=== PATIENT | female | born 1950 | race Caucasian/White ===

== ENCOUNTER 2018-02-13 06:37 | Inpatient (IN) | payer OTHER ==
[2018-02-06 09:59] VITALS: BMI 34.0
--- NOTE | 2018-02-06 11:38 | DIAGNOSTIC IMAGING REPORT ---
CHEST 2 VIEWS ROUTINE CLINICAL HISTORY: PAT preoperative evaluation COMPARISON STUDY: No previous studies for comparison. FINDINGS: The bones soft tissues and hemidiaphragms are normal. The cardiomediastinal silhouette is normal. The lungs are clear. The pulmonary vasculature is normal. IMPRESSION: Negative chest. The above report was generated using voice recognition software. It may contain grammatical, syntax or spelling errors. Electronically signed by: Reilly Briceño M.D. 02/06/2018 11:37 AM Dictated Date/Time: 02/06/2018 11:36 AM
[2018-02-06 11:39] LABS: BASO % 1.1 %; BASO ABS # 0.06 K/uL (0-0.2); EOS % 5.5 %; EOS ABS # 0.29 K/uL (0-0.5); HEMATOCRIT 39.3 % (37-47); HEMOGLOBIN 13.1 g/dL (12.0-16.0); IG# 0.01 K/uL (0.00-0.02); LYMPH % 35.7 %; LYMPH ABS # 1.88 K/uL (1.2-3.4); MEAN CELL VOLUME 88.9 fL (80-100); MEAN CORPUSCULAR HEMOGLOBIN 29.6 pg (25-34); MEAN CORPUSCULAR HGB CONC 33.3 g/dl (32-36); MEAN PLATELET VOLUME 10.4 fL (7.4-10.4); MONO % 6.5 %; MONO ABS # 0.34 K/uL (0.11-0.59); NEUT ABS # 2.68 K/uL (1.4-6.5); PLATELET COUNT 250 K/uL (130-400); RED CELL DISTRIBUTION WIDTH CV 12.7 % (11.5-14.5); RED CELL DISTRIBUTION WIDTH SD 41.2 fL (36.4-46.3); WHITE BLOOD COUNT 5.26 K/uL (4.8-10.8)
[2018-02-06 11:45] LABS: CALCIUM 9.6 mg/dl (8.5-10.1); CREATININE 1.62 mg/dl (0.60-1.20); POTASSIUM 4.1 mmol/L (3.5-5.1)
[2018-02-06 11:49] LABS: PTT PATIENT 25.1 SECONDS (21.0-31.0)
--- NOTE | 2018-02-10 10:09 | HISTORY & PHYSICAL EXAMINATION ---
DATE OF ADMISSION: 02/13/2018 CHIEF COMPLAINT: Bilateral knee pain and discomfort, left side greater than right. HISTORY OF PRESENT ILLNESS: A 67-year-old female who presents for surgical treatment of her left knee. She has a long history of bilateral knee pain and discomfort, left side greater than right, which gradually has just gotten worse over time. We have been treating conservatively with injections which have become less successful over time. We were doing this for the past 8 years or so. Pain is mostly medial. She has had some underlying kidney disease and cannot take NSAIDs. Pain is somewhat disabling and she would like to have her left knee fixed. PAST MEDICAL HISTORY: 1. Hypertension. 2. Elevated cholesterol. 3. Asthma. 4. Bipolar disorder. 5. Hypothyroidism. 6. Chronic kidney disease. 7. Gastroesophageal reflux disease. 8. Mild obesity, BMI 35. PAST SURGICAL HISTORY: Foot surgery. ALLERGIES: LOMOTIL. CURRENT MEDICINES: 1. Include Levoxyl 137 mcg a day. 2. Hydrocodone for chronic pain. 3. Fluticasone nasal spray. 4. Afrin nasal spray. 5. Lamictal 100 mg for bipolar disorder. 6. Ventolin inhaler. 7. Atarax. 8. Prilosec 40 mg. 9. Primidone. 10. Lorazepam. 11. Neurontin. 12. Prozac. 13. Vitamin D3. SOCIAL HISTORY: A 67-year-old female. She is but lives with her family. No alcohol intake. Does not smoke. FAMILY HISTORY: Significant for basal cell skin cancer. REVIEW OF SYSTEMS: Negative for diabetes, neurologic problems, vascular problems, bleeding disorders. She does have chronic kidney disease with a creatinine of 1.62. No chest pain or shortness of breath. No bleeding problems. She does have this underlying bipolar disorder. PHYSICAL EXAMINATION: GENERAL: Reveals a pleasant middle-aged female, looks to be in pretty good health. HEENT: Benign. NECK: Supple. No lymphadenopathy. LUNGS: Clear to auscultation. HEART: Regular rate and rhythm. ABDOMEN: Soft, nontender, nondistended. EXTREMITIES: Grossly neurovascularly intact except as follows: Examination of left knee reveals patient walks independently. She has a slight varus alignment to her knee. Skin is intact. Range of motion is full extension to 125 degrees of flexion. No instability. No pain with hip motion. X-RAYS: X-ray of left knee reviewed. Shows advanced medial compartment arthritis. She has complete loss of her medial joint space. She has subchondral sclerosis and osteophytes of the medial femoral condyle and medial tibial plateau. ASSESSMENT: A 67-year-old white female with advanced bilateral knee degenerative joint disease, left side greater than right. She has failed conservative treatment and would like to have her left knee replaced. PLAN: We will take her to the operating room and do a left total knee replacement. The risks and benefits of this procedure explained to the patient including but not limited to DVT, PE, , infection, neurological injury, neurovascular injury, bleeding problem, pain, limited range of motion, stiffness, failure to relieve her symptoms, persistent pain etc. The patient understands and desires to proceed. Informed consent was obtained. Patient does have an underlying kidney disease, we will have to be careful with NSAID use postoperatively. We will plan using aspirin twice a day and probably hold any Toradol. As far as discharge plans, she is going to be discharged to home using [facility] home health program. Her family will assist in her care along with her sister.
[~2018-02-13] VITALS: Ht 167.6 cm; Wt 95.8 kg
[2018-02-13] VITALS (9 sets, daily range): BP systolic 127–176; BP diastolic 79–108; PULSE 53–69; TEMP 36.4–37.1; O2SAT 94–99; Ht 167.6 cm; Wt 95.8 kg
[~2018-02-13 06:37] MED LIST: ACETAMINOPHEN 500 MG TAB PO SCH; BUPIVACAINE LIPOSOME 266 MG, BUPIVACAINE/EPINEPHRINE INJ 50 ML, SODIUM CHLORIDE 0.9% PF... INFIL SCH; CEFAZOLIN 2000MG IV PUSH 15 ML IV SCH; CHOL2000 PO; CLR10 PO; DIPH25CA65 PO; FAMOTIDINE 20 MG TAB PO SCH; FENTANYL CITRATE INJ 50 MCG/1 ML 2 ML VIAL ONE; FLUO40CA8 PO; FLUT0.15 INTNAS; GABAPENTIN 300 MG CAP PO SCH; HYDR-3126 PO; LACTATED RINGER'S 1000ML 1,000 ML IV SCH; LACTATED RINGER'S 1000ML 500 ML IV SCH; LACTATED RINGER'S 1000ML IV SCH; LAMO100T16 PO; LEVO137T3 PO; LORA-741 PO; METOCLOPRAMIDE HCL 10 MG TAB PO SCH; MIDAZOLAM HCL 1 MG/ML 2ML VIAL ONE; MYS50 PO; OXYM0.056 INTNAS; PRLSR20 PO; TRANEXAMIC ACID INJ 1,000 MG x 1 Bag Preop IV SCH; VNTHFA/IN INH
[2018-02-13] MEDS ORDERED: ROPIVACAINE 0.5% 5 MG/ML 30 ML VIAL ONE (07:32)
[2018-02-13] MEDS ORDERED: BUPIVACAINE 0.5 % 5 MG/1 ML PF 10ML VIAL ONE (07:33)
--- NOTE | 2018-02-13 08:51 | History & Physical Bridge Note ---
H&P Re-Evaluation Bridge Note: I have examined the patient, reviewed the History & Physical and in the interval since the performance of the History & Physical I have noted the following changes of clinical significance: No changes noted
[2018-02-13] MEDS ORDERED: BACITRACIN 50000 UNIT VIAL ONE (09:57)
[2018-02-13] MEDS ORDERED: EpINEphrine INJ 1MG/ML AMP 1 MG/ML AMP ONE (09:57)
[2018-02-13] MEDS ORDERED: SODIUM CHLORIDE 0.9% PF 50 ML VIAL ONE (09:57)
[2018-02-13] MEDS ORDERED: BUPIVACAINE LIPOSOME 1/3% 266 MG/20 ML VIAL ONE (09:57)
[2018-02-13] MEDS ORDERED: BUPIVACAINE 0.25% 30 ML VIAL ONE (09:57)
[2018-02-13] MEDS ORDERED: EpHEDrine SULFATE INJ 50 MG/ML AMP IV PRN (11:30)
[2018-02-13] MEDS ORDERED: ATROPINE SULFATE 0.1 MG/ML 5ML SYR IV PRN (11:30)
[2018-02-13] MEDS ORDERED: PROPOFOL IV EMULSION 10 MG/ML 20 ML VIAL ONE (11:36)
[2018-02-13] MEDS ORDERED: ONDANSETRON INJ 2 MG/ML 2 ML VIAL ONE (11:36)
[2018-02-13] MEDS ORDERED: LIDOCAINE HCL 2% 2 ML VIAL (20MG/ML) ONE (11:36)
--- NOTE | 2018-02-13 11:47 | [facility] Post Operative Brief Note ---
Immediate Operative Summary Operative Date February 13, 2018. Pre-Operative Diagnosis Left Knee Advanced Degenerative Joint Disease Post-Operative Diagnosis Left Knee Advanced Degenerative Joint Disease Procedure(s) Performed Left Total Knee Arthroplasty Surgeon Dr. Swanson Burr Grinder Surgeon(s) ANUSHA Sorto Estimated Blood Loss 50 ml Findings Consistent with Post-Op Diagnosis Fluids (cc crystalloids) 1200 cc Specimens A. Left Knee Bone and Tissue Drains None Anesthesia Type MAC Spinal Regional Complication(s) none Disposition Accompanied Pt To Recover: no Disposition: Recovery Room / PACU
[2018-02-13] MEDS ORDERED: FLUTICASONE PROPIONATE NA SPR 16 GM BTL PRN (12:00)
[2018-02-13] MEDS ORDERED: hydrOXYzine HCL 10 MG TAB PO PRN (12:00)
[2018-02-13] MEDS ORDERED: METOCLOPRAMIDE HCL INJ 5 MG/ML 2 ML VIAL IV PRN (12:00)
[2018-02-13] MEDS ORDERED: MAGNESIUM HYDROXIDE SUSP 30 ML UDC PO PRN (12:00)
[2018-02-13] MEDS ORDERED: ALBUTEROL HFA 8 GM INHALER INH PRN (12:00)
[2018-02-13] MEDS ORDERED: ALUMINUM/MAGNESIUM/SIMETH (MAALOX MAX) 30 ML UDC PO PRN (12:00)
[2018-02-13] MEDS ORDERED: NO NSAIDS SCH (12:00)
[2018-02-13] MEDS ORDERED: SILVER SULFADIAZINE 1% CR 50 GM JAR EXT PRN (12:00)
[2018-02-13] MEDS ORDERED: OXYMETAZOLINE HCL 0.05% NA SPR 15 ML BTL PRN (12:00)
[2018-02-13] MEDS ORDERED: LORATADINE 10 MG TAB PO PRN (12:00)
[2018-02-13] MEDS ORDERED: BISACODYL 10 MG SUPP PR PRN (12:00)
[2018-02-13] MEDS ORDERED: ZOLPIDEM TARTRATE 5 MG TAB PO PRN (12:00)
[2018-02-13] MEDS ORDERED: LORAZEPAM 0.5 MG TAB PO PRN (12:00)
[2018-02-13] MEDS ORDERED: CEFAZOLIN IV 2,000 MG in DEXTROSE 5% 50ML 50 ML IV SCH (12:00)
[2018-02-13] MEDS ORDERED: DiphenhydrAMINE HCL 50 MG/ML VIAL IV PRN (12:00)
--- NOTE | 2018-02-13 12:29 | DIAGNOSTIC IMAGING REPORT ---
L KNEE 1 OR 2 VIEWS ROUTINE CLINICAL HISTORY: 67 years-old Female presenting with AP/LATERAL IN PACU LEFT KNEE. TECHNIQUE: Frontal and crosstable lateral views of the left knee were obtained. COMPARISON: 01/26/2018. FINDINGS: There has been interval total left knee arthroplasty with patellar resurfacing. Expected intra-articular and soft tissue emphysema. Overlying skin lexii noted. No acute fracture or malalignment. No hardware convocation. IMPRESSION: Expected postsurgical appearance status post total left knee arthroplasty with patellar resurfacing. Electronically signed by: Jakub Molina M.D. 02/13/2018 12:28 PM Dictated Date/Time: 02/13/2018 12:26 PM
--- NOTE | 2018-02-13 12:31 | Anesthesiology Progress Note ---
Anesthesia Post Op Note Date & Time February 13, 2018 at 12:30 Vital Signs Pain Intensity: 0 Vital Signs Past 12 Hours Date Time Temp Pulse Resp B/P (MAP) Pulse Ox O2 Delivery O2 Flow Rate FiO2 02/13/18 12:23 36.6 94 Nasal Cannula 2 02/13/18 12:21 108/66 02/13/18 12:19 58 15 99 02/13/18 12:19 58 15 02/13/18 12:16 121/65 02/13/18 12:14 59 17 02/13/18 12:14 59 17 98 02/13/18 12:11 121/70 02/13/18 12:09 59 20 02/13/18 12:09 60 20 98 02/13/18 12:08 60 19 02/13/18 12:08 59 19 98 02/13/18 12:06 115/65 02/13/18 12:03 63 21 100 02/13/18 12:03 62 21 02/13/18 12:01 113/60 02/13/18 11:58 59 15 98 02/13/18 11:58 59 15 02/13/18 11:56 101/58 02/13/18 11:53 68 120/65 95 02/13/18 11:53 36.6 66 16 120/65 98 Oxymask 10 02/13/18 11:53 69 02/13/18 07:14 36.9 64 20 160/86 95 Room Air Notes Mental Status: alert / awake / arousable, participated in evaluation Pt Amnestic to Procedure: Yes Nausea / Vomiting: adequately controlled Pain: adequately controlled Airway Patency, RR, SpO2: stable & adequate BP & HR: stable & adequate Hydration State: stable & adequate Neuraxial Anesthesia: was administered, sensory block is resolving Anesthetic Complications: no major complications apparent
[2018-02-13] MEDS: D5W AND 1/2NSS + 20MEQ KCL 1,000 ML IV SCH ×2 (14:39→23:37)
[2018-02-13] MEDS: OXYCODONE HCL IR 5 MG TAB (IMMEDIATE RELEASE) PO PRN ×3 (15:16→19:59)
--- NOTE | 2018-02-13 16:05 | OPERATIVE REPORT ---
DATE OF OPERATION: 02/13/2018 SURGEON: Dima Swanson MD INSPECTOR PROCESS: Rj TAVARES PREOPERATIVE DIAGNOSIS: Left knee degenerative joint disease. POSTOPERATIVE DIAGNOSIS: Same. PROCEDURE PERFORMED: Left cemented posterior stabilized total knee arthroplasty. COMPLICATIONS: None. ESTIMATED BLOOD LOSS: 50 mL. FLUID REPLACEMENT: 1200 mL crystalloid fluid replacement. TOURNIQUET TIME: 54 minutes at 300 mmHg. ANESTHESIA: Spinal with adductor canal block. DRAINS: None. SPECIMENS: Left knee sent for pathology. OPERATIVE INDICATIONS: The patient is a 67-year-old female have been following for the past 8 years for bilateral knee pain and degenerative joint disease. She has been through extensive conservative treatment over the years, which became less successful over time. X-rays show advanced knee arthritis. The left knee is bothered more than the right. She elects to proceed with left total knee arthroplasty. OPERATIVE FINDINGS: Operative findings revealed advanced left knee DJD. She has extensive grade 4 changes medial femoral condyle and medial tibial plateau. She had a moderate sized joint effusion. The rest of the joint was fairly well preserved. She did have osteophytes in the medial femoral condyle and medial tibial plateau. OPERATIVE IMPLANTS: Operative implants consisted of: 1. Biomet Vanguard size 67.5 left posterior stabilized femoral component. 2. Biomet size 71 tibial tray. 3. A 10 mm posterior stabilized polyethylene insert. 4. A 31 x 8 all poly patella. OPERATIVE PROCEDURE: The patient taken to the operating room, identified and placed on the operating table in supine position. All contact areas were appropriately padded. IV antibiotics were provided by anesthesia team. A spinal anesthetic and adductor canal block had been provided in the holding area. Arevalo catheter was placed in sterile fashion. A left thigh tourniquet was then placed and left lower extremity was then prepped and draped in usual sterile fashion. The left leg was elevated and exsanguinated with Esmarch and tourniquet was placed at 300 mmHg. An anterior approach of the left knee was then performed through a longitudinal incision centered over the patella. Sharp dissection was carried through subcutaneous tissue down to the level of the extensor mechanism. Medial parapatellar arthrotomy incision was made. Some subperiosteal dissection was carried out medially. The fat pad resecting from beneath the patellar tendon. Lateral patellofemoral ligament was released. Patella was everted and knee was flexed. The osteophytes were taken off the distal femur. The ACL and PCL were then released from the distal femur and the tibia subluxated anteriorly. External tibial alignment jig was then placed in the anterior face of the tibia and adjusted 16 mm medially. Proximal tibial cut was made to remove about a millimeter of bone from the most deficient aspect of the medial tibial plateau. Some osteophytes were taken off posteriorly. The tibia was then sized to a size 71. Attention was then drawn to the femur. The distal femur was entered with a sharp drill bit. Intramedullary canal was suctioned. A left 5 degree valgus cutting guide was placed and distal femoral cutting block was pinned in place. Distal femoral cut was made to take an additional 3 mm of bone off the distal femur. Femur was then sized to a size 67.5. The AP cutting block was pinned parallel to the epicondylar axis, which was 5 degrees of external rotation. The anterior cut, anterior chamfer, posterior cut, posterior chamfer cuts were made. Box cutting guide was placed and adjusted slight lateral and box cut was made. The knee was flexed. The remnants of the medial and lateral menisci were excised. The osteophytes were taken off the posterior aspect of the femur. Trial femoral component was placed. Tibial tray was pinned in maximum external rotation and drill and stem punch were used to create defect in proximal tibia for the tibial tray. The knee was then trialed and the 10 mm insert fit most appropriately. Attention was then drawn to the patella. The patella was cleaned of all soft tissues. Patellar thickness measured 23 mm in thickness was cut down to 14. It was sized to a size 31 patella. Lug holes were drilled for 31 patella. Lateral osteophyte was removed. Patella button was placed. Knee was taken through range of motion and the patella tracked nicely with no thumbs test. Attention was then drawn toward placement of permanent components. All trial components removed. Bone plug was placed into the distal femur to limit blood loss. A double batch of Palacos G cement was mixed. A left size 67.5 posterior stabilized femoral component, size 71 tibial tray, a 10 mm posterior stabilized polyethylene insert, and a 31 x 8 all poly patella then cemented in place. Knee was brought in full extension until the cement had hardened. Final cement check was then performed. Pericapsular tissues were injected with a total of 100 mL of a combination of 20 mL of Exparel, 30 mL of normal saline, 50 mL of 0.25% Marcaine with epinephrine. The patient did receive 1 gram of tranexamic acid. The tourniquet was then let down for final tourniquet time of 54 minutes. Hemostasis was assured with use of electrocautery. The wound was once again irrigated. The extensor mechanism was then closed with a combination of #1 PDS suture and #1 Vicryl suture in a [id number] fashion. Extensor mechanism was checked and found to be intact. The subcutaneous tissue then closed with #2 Dexon suture in a buried interrupted fashion. Skin was closed skin lexii. Leg was then cleaned and dried and a sterile dressing of Xeroform, 4 x 4, sterile cast padding and Mateus bandage were applied. The patient then transferred to the recovery room in stable condition. The patient tolerated the procedure well with no complications. All needle and sponge counts were correct and the operation. I attest to the content of the Intraoperative Record and any orders documented therein. Any exceptions are noted below. MAX
[2018-02-13] MEDS: FERROUS GLUCONATE 324 MG TAB PO SCH (17:06)
[2018-02-13] MEDS ORDERED: TRANEXAMIC ACID INJ 1,000 MG in SODIUM CHLORIDE 0.9% 100ML 100 ML IV SCH (18:00)
[2018-02-13] MEDS: CEFAZOLIN IV 2,000 MG in SYRINGE 0 ML IV SCH (18:46)
--- NOTE | 2018-02-13 19:13 | PROGRESS NOTE ---
DATE: 02/13/2018 SUBJECTIVE: A 67-year-old while female postop from a left knee replacement. She is doing well. Just starting to get some pain. No chest pain or shortness of breath. Not feeling dizzy or lightheaded. OBJECTIVE: VITAL SIGNS: Temperature 36.4. Stable. GENERAL: Exam reveals a pleasant middle-aged female. She is sitting up in bed, looks comfortable. EXTREMITIES: Examination of the left leg reveals the dressing to be clean, dry, and intact. She can dorsiflex and plantarflex her foot appropriately. She has brisk refill. Good distal pulse. IMAGING: X-rays of left knee from recovery room reviewed. It shows a left cemented posterior stabilized total knee arthroplasty. Components looked to be in good position. No signs of problems. ASSESSMENT: A 67-year-old white female postop from a left knee replacement, doing well. The pain is controlled. She is neurologically intact. PLAN: 1. DVT prophylaxis including thigh-high TEDs, SCDs, and aspirin twice a day. 2. PT/OT. Weightbear as tolerated. Left total knee protocol. 3. Pain control and doing pretty well with current pain regimen. 4. Disposition: She is hoping to be discharged to home with home health and her family's assistance once medically stable.
[2018-02-13] MEDS: HYDROmorphone INJ 0.5 MG/0.5 ML SYR IV PRN (19:16)
[2018-02-13] MEDS: SENNA 8.6 MG TAB PO SCH (21:12)
[2018-02-13] MEDS: ASPIRIN 81 MG ECTAB PO SCH (21:13)
[2018-02-13] MEDS: PRIMIDONE 50 MG TAB PO SCH (21:13)
[2018-02-13] MEDS: DOCUSATE SODIUM 100 MG CAP PO SCH (21:13)
[2018-02-13] MEDS: ACETAMINOPHEN 500 MG TAB PO SCH (21:14)
[2018-02-13] MEDS: TAPENTADOL ER 50 MG TABCR PO SCH (21:20)
[2018-02-14] VITALS (9 sets, daily range): BP systolic 135–195; BP diastolic 79–114; PULSE 73–105; TEMP 36.9–37.5; O2SAT 91–96
[2018-02-14] MEDS: OXYCODONE HCL IR 5 MG TAB (IMMEDIATE RELEASE) PO PRN ×5 (01:09→21:20)
[2018-02-14] MEDS: CEFAZOLIN IV 2,000 MG in SYRINGE 0 ML IV SCH (01:11)
[2018-02-14] MEDS: LEVOTHYROXINE 137 MCG TAB PO SCH (05:38)
[2018-02-14] MEDS: ACETAMINOPHEN 500 MG TAB PO SCH ×3 (05:38→22:18)
[2018-02-14 06:19] LABS: HEMATOCRIT 37.5 % (37-47); HEMOGLOBIN 12.4 g/dL (12.0-16.0); MEAN CELL VOLUME 90.4 fL (80-100); MEAN CORPUSCULAR HEMOGLOBIN 29.9 pg (25-34); MEAN CORPUSCULAR HGB CONC 33.1 g/dl (32-36); MEAN PLATELET VOLUME 10.5 fL (7.4-10.4); PLATELET COUNT 205 K/uL (130-400); RED CELL DISTRIBUTION WIDTH CV 12.6 % (11.5-14.5); RED CELL DISTRIBUTION WIDTH SD 41.6 fL (36.4-46.3); WHITE BLOOD COUNT 6.63 K/uL (4.8-10.8)
[2018-02-14 06:44] LABS: CALCIUM 8.7 mg/dl (8.5-10.1); CREATININE 1.76 mg/dl (0.60-1.20); POTASSIUM 4.2 mmol/L (3.5-5.1)
[2018-02-14] MEDS ORDERED: RXC5 PO (08:49)
[2018-02-14] MEDS ORDERED: ASPI-320 PO (08:49)
[2018-02-14] MEDS ORDERED: ACET-24 PO (08:49)
--- NOTE | 2018-02-14 08:51 | Discharge Instructions ---
Discharge Instructions Date of Service February 14, 2018. Admission Reason for Admission: Left Knee Degenerative Joint Disease Discharge Discharge Diagnosis / Problem: Left Knee Replacement Discharge Goals Goal(s): Decrease discomfort, Improve function, Increase independence, Improve disease control, Therapeutic intervention Activity Recommendations Activity Limitations: per Instructions/Follow-up section Weightbearing Status: Left weightbearing . Instructions / Follow-Up Instructions / Follow-Up ACTIVITY RECOMMENDATIONS: Physical Therapy: * You will go to physical therapy three times each week for four to six weeks after your surgery in order to regain your knee range of motion and to retrain your knee to work properly. * It is just as important to make sure you are getting your knee perfectly straight as it is to regain your knee bend. * Taking a pain pill an hour before therapy can help you have a more productive and comfortable therapy session. Home Exercise: * You were shown a series of exercises (heel props, heel slides, etc.) in the hospital. Do these exercises three to four times each day including the exercises you were shown in physical therapy. Walking: * Get up and walk several times each day. For the first four weeks, try not to stand or walk for more than one hour at a time. If you do stand or walk for more than one hour, you will not hurt anything, but your knee and leg will likely swell. * As you feel comfortable, you may change from the walker or crutches to a cane and then to independent walking. MEDICATIONS: New Medicine: * You will likely be taking one or more of these medications: 1. Oxycodone - A quick and shorter-acting pain medication. Take one to two tablets every four to six hours to lessen your pain. 2. Aspirin - Thins your blood to lessen the chance of forming a blood clot. * The most common side effects of pain medicine and iron are nausea and constipation. If nausea or constipation is too much of a problem or if you have any questions about your new medicines or doses, call [facility] at . We will try to help you manage these issues. VERY IMPORTANT TO READ AND REVIEW" Pain: * The immediate post-operative period after knee replacement surgery is often quite painful. * You are given a prescription for pain medicine. You should take it, as directed, when you need it, especially before physical therapy and before going to bed. Pain that interferes with sleep is very common and can last several months. * You will likely need pain medicine for the first four to six weeks. It will not stop all of the pain. The pain will lessen and as you feel better, you may change to milder pain medicine such as Tylenol. * The most common side effects of pain medicine are nausea and constipation, so don't take more than you need. SPECIAL CARE INSTRUCTIONS: TEDs/Elastic Stockings: * The white elastic stockings help limit swelling and prevent blood clots from forming in your legs. The more you wear them, the more they work. * Wear them for six weeks after knee replacement surgery and four weeks after partial knee replacement. Prevention of Infection: * Take antibiotics one hour before any dental cleaning, dental work, urological procedure, gastrointestinal procedure or any invasive surgery in order to prevent your new joint from getting infected. * You may get the antibiotics from the doctor performing the procedure or you may call our office at before and we will call in a prescription to the pharmacy of your choice. Things to Watch For: * Drainage from the incision site that occurs more than one week after your surgery. * Severely increased knee/leg pain or swelling. * Increased redness at the incision site. * Fever above 102 degrees Fahrenheit. * Unusual chest pain or shortness of breath. * Unusual pain or burning with urination. Call [facility] at with any of the above problems or if you have any questions about your medicines or recovery. FOLLOW UP VISIT: Make an appointment to see your doctor for approximately two weeks after surgery for a progress check and staple removal by calling the office at . Current Hospital Diet Patient's current hospital diet: Regular Diet Discharge Diet Recommended Diet: Regular Diet Procedures Procedures Performed: Left Total Knee Arthroplasty Pending Studies Studies pending at discharge: no Medical Emergencies . Who to Call and When: Medical Emergencies: If at any time you feel your situation is an emergency, please call [phone] immediately. . Non-Emergent Contact Non-Emergency issues call your: Surgeon . "Provider Documentation" section prepared by Dima Swanson. .
[2018-02-14] MEDS ORDERED: CHOLECALCIFEROL 1000 INTER.UNIT TAB PO SCH (09:00)
[2018-02-14] MEDS ORDERED: PANTOprazole SOD 40 MG TAB PO SCH (09:00)
[2018-02-14] MEDS: CHOLECALCIFEROL 1000 INTER.UNIT TAB PO SCH (09:00)
[2018-02-14] MEDS: MULTIVITAMIN TAB PO SCH (09:35)
[2018-02-14] MEDS: TAPENTADOL ER 50 MG TABCR PO SCH ×2 (09:35→22:18)
[2018-02-14] MEDS: FERROUS GLUCONATE 324 MG TAB PO SCH ×3 (09:36→17:11)
[2018-02-14] MEDS: ASPIRIN 81 MG ECTAB PO SCH ×2 (09:36→21:18)
[2018-02-14] MEDS: DOCUSATE SODIUM 100 MG CAP PO SCH ×2 (09:36→21:19)
[2018-02-14] MEDS: FLUOXETINE HCL 20 MG CAP PO SCH (09:36)
[2018-02-14] MEDS: PANTOprazole SOD 40 MG TAB PO SCH (09:36)
[2018-02-14] MEDS: D5W AND 1/2NSS + 20MEQ KCL 1,000 ML IV SCH (10:30)
--- NOTE | 2018-02-14 11:48 | PROGRESS NOTE ---
DATE: 02/14/2018 SUBJECTIVE: A 67-year-old white female, postop day 1 from a left knee replacement. She is doing reasonably well. A bit more pain today. No chest pain or shortness of breath. Not feeling dizzy or lightheaded. OBJECTIVE: VITAL SIGNS: Temperature 37.7. Vital signs stable. Intermittent hypertension, likely related to pain. GENERAL: Reveals a pleasant middle-aged female. She is lying in bed, looks reasonably comfortable currently. EXTREMITIES: Examination of left leg reveals the dressing to be clean, dry, and intact. She can dorsiflex and plantarflex her foot appropriately. She is neurologically intact. LABORATORY DATA: Hemoglobin is 12.4, hematocrit 37.5. Electrolytes are stable. Creatinine just slightly elevated at 1.76 compared to her baseline, which is 1.62. ASSESSMENT: A 67-year-old white female postop day 1 from a left knee replacement, doing reasonably well. A little bit of recent hypertension, but likely related to she just finished therapy. She does not have any symptoms. Her renal function is a bit deteriorated, likely just due to hydration issues. She has got chronic renal insufficiency. PLAN: 1. DVT prophylaxis including thigh high TEDs, SCDs, and a baby aspirin twice a day. I will continue to follow renal function. 2. PT/OT. Weight bear as tolerated. Left total knee protocol. 3. Pain control. Doing reasonably well with current pain regimen. 4. Hypertension. She has got a couple isolated elevated blood pressures. We will continue to follow this. I think most likely it is recently related to just finishing therapy. 5. Elevated creatinine. We will follow her creatinine. We will avoid any NSAIDs other than the baby aspirin. If creatinine continues to go up, we will likely have to stop her aspirin. 6. Disposition: She will be discharged to home with home health once medically stable.
[2018-02-14] MEDS ORDERED: HydrALAZINE HCL 20 MG/ML VIAL IV. STA (14:21)
--- NOTE | 2018-02-14 18:29 | Medical Consult ---
Consultation Date of Consultation: February 14, 2018. Attending Physician: Dima Swanson M.D. Reason for Consultation: post op medical mgmt History of Present Illness This is a 67yo F with a PMH of HTN, HLD, bipolar disorder, hypothyroidism, CKD III, OA and other medical problems listed below who is POD #1 s/p L TKA by Dr. Swanson. Patient is doing fairly well post-operatively. States that knee pain has been persistent but is only a 3/10. Medical consult was placed for management of hypertension, with highest reading of 195/114 post-operatively. Patient has previously been on lisinopril therapy at home but developed a cough and medication was discontinued by PCP. Has been undergoing monthly BP monitoring at the clinic and has not required any additional medications. Denies any fever, chills, lightheadedness, headache, visual changes, sore throat , CP, SOB, abdominal pain, nausea, vomiting, dysuria or LE swelling. PCP is Dr. De Anda with [facility]. Past Medical/Surgical History Medical Problems: (1) Asthma Status: Chronic (2) Bipolar disorder Status: Chronic (3) CKD (chronic kidney disease), stage III Status: Chronic (4) Diabetes insipidus Status: Chronic (5) GERD (gastroesophageal reflux disease) Status: Chronic (6) Hyperlipidemia Status: Chronic (7) Hypertension Status: Chronic (8) Hypothyroidism Status: Chronic (9) Left Knee DJD Status: Chronic (10) Vitamin D deficiency Status: Chronic Surgical Problems: (1) H/O hammer toe correction Status: Resolved (2) History of appendectomy Status: Resolved (3) Hx of tonsillectomy Status: Resolved Family History Diabetes mellitus Thromboembolic disease Social History Smoking Status: Never Smoker Alcohol Use: occasionally (1x/month) Marital Status: Housing Status: lives with family Allergies Coded Allergies: Lamotrigine (Verified Allergy, Unknown, SOB,CONFUSION,DISORIENTATION-FELT VERY DEPRESSED-WITH HIGHER, 02/13/18) OK TAKING TAKING LOWER DOSES CURRENTLY Lisinopril (Verified Allergy, Unknown, COUGH, 02/13/18) Home Medications Reported Home Medications Medications Dose Route/Sig Max Daily Dose Days Date Category Dose Instructions Oxycodone HCl 5 Mg Tab 5-10 Mg PO Q6H PRN 30 02/14/18 Rx Take as needed for Pain. Aspirin EC Low Dose (Aspirin) 81 Mg Ectab 81 Mg PO BID 45 02/14/18 Rx Take to prevent blood clots. Sb Non-Aspirin Extra Stre (Acetaminophen) 500 Mg Tab 1,000 Mg PO Q8H 30 02/14/18 Rx Take 3 times per day to lessen pain. Prozac (Fluoxetine HCl) 40 Mg Cap 40 Mg PO QAM 02/06/18 Reported Claritin (Loratadine) 10 Mg Tab 10 Mg PO PRN 02/06/18 Reported Benadryl Allergy (Diphenhydramine Hcl) 25 Mg Cap 1 Cap PO HS PRN 30 02/06/18 Reported Vitamin D3 (Cholecalciferol) 2,000 Unit Cap 1 Cap PO Q2D 90 02/06/18 Reported AM Ativan (Lorazepam) 0.5 Mg Tab 0.5 Mg PO BID PRN 02/06/18 Reported Prilosec (Omeprazole) 20 Mg Capcr 40 Mg PO QAM 02/06/18 Reported Ventolin Hfa (Albuterol) 200 Puffs/21454 Mcg Aers 2 Puffs INH Q6H PRN 02/06/18 Reported Atarax (Hydroxyzine Hcl) 50 Mg Tab 10 Mg PO PRN 02/06/18 Reported Afrin (Oxymetazoline Hcl) 0.05 % Spr 2 Sprays INTNAS PRN 02/06/18 Reported Flonase Allergy Relief (Fluticasone Propionate (Nasal)) 50 Mcg/Act Spr 2 Sprays INTNAS PRN 02/06/18 Reported Lamictal (Lamotrigine) 100 Mg Tab 100 Mg PO QAM 02/06/18 Reported Levothyroxine Sodium 137 Mcg Tab 1 Tab PO QAM 90 02/06/18 Reported Primidone 50 Mg Tab 50 Mg PO HS 02/06/18 Reported Current Inpatient Medications Current Inpatient Medications Medications (Trade) Dose Ordered Sig/Roberta Route Start Time Stop Time Status Last Admin Dose Admin Miscellaneous Medication (No Nsaids) 1 ea UD N/A 02/13/18 12:00 03/15/18 11:59 Oxycodone HCl (Roxicodone Immediate Rel Tab) 1 TABLET FOR PAIN RATING... Q4H PRN PO 02/13/18 12:00 02/27/18 11:59 02/14/18 16:34 10 MG Acetaminophen (Tylenol Tab) 1,000 mg Q8H PO 02/13/18 22:00 03/15/18 21:59 02/14/18 13:58 1,000 MG Magnesium Hydroxide (Milk Of Magnesia Susp) 30 ml Q6H PRN PO 02/13/18 12:00 03/15/18 11:59 02/14/18 16:24 30 ML Bisacodyl (Dulcolax Supp) 10 mg DAILY PRN SD 02/13/18 12:00 03/15/18 11:59 Senna (Senokot Tab) 17.2 mg HS PO 02/13/18 21:00 03/15/18 20:59 02/13/18 21:12 17.2 MG Docusate Sodium (coLACE CAP) 100 mg BID PO 02/13/18 21:00 03/15/18 20:59 02/14/18 09:36 100 MG Diphenhydramine HCl (Benadryl Cap) 25 mg Q8H PRN PO 02/13/18 12:00 03/15/18 11:59 Diphenhydramine HCl (Benadryl Inj) 25 mg Q8H PRN IV 02/13/18 12:00 03/15/18 11:59 Al Hydrox/Mg Hydrox/Simethicone (Maalox Max Susp) 15 ml Q4H PRN PO 02/13/18 12:00 03/15/18 11:59 Zolpidem Tartrate (Ambien Tab) 5 mg HSZ PRN PO 02/13/18 12:00 03/15/18 11:59 Multivitamins (Multivitamin Tab) 1 tab QAM PO 02/14/18 09:00 03/16/18 08:59 02/14/18 09:35 1 TAB Ondansetron HCl (Zofran Inj) 4 mg Q6H PRN IV 02/13/18 12:00 03/15/18 11:59 Metoclopramide HCl (Reglan Inj) 10 mg Q6H PRN IV 02/13/18 12:00 03/15/18 11:59 Ferrous Gluconate (Ferrous Gluconate Tab) 324 mg TIDM PO 02/13/18 17:45 03/15/18 17:44 02/14/18 12:58 324 MG Silver Sulfadiazine (Silvadene 1% Crm 50GM Jar) 1 appln BID PRN EXT 02/13/18 12:00 03/15/18 11:59 Tapentadol (Nucynta Er Tab) 50 mg Q12 PO 02/13/18 21:00 03/15/18 20:59 02/14/18 09:35 50 MG Aspirin (Ecotrin Tab) 81 mg BID PO 02/13/18 21:00 03/15/18 20:59 02/14/18 09:36 81 MG Hydromorphone HCl (Dilaudid Inj) 0.5 mg Q1H PRN IV 02/13/18 12:00 02/27/18 11:59 02/13/18 19:16 0.5 MG Albuterol (Ventolin Hfa Inhaler) 2 puffs Q6H PRN INH 02/13/18 12:00 03/15/18 11:59 Diphenhydramine HCl (Benadryl Cap) 25 mg HS PRN PO 02/13/18 12:00 03/15/18 11:59 Fluoxetine HCl (Prozac Cap) 40 mg QAM PO 02/14/18 09:00 03/16/18 08:59 02/14/18 09:36 40 MG Fluticasone Propionate (Flonase Nasal [place]) 2 sprays UD PRN NA 02/13/18 12:00 03/15/18 11:59 Hydroxyzine HCl (Vistaril Tab) 10 mg DAILY PRN PO 02/13/18 12:00 03/15/18 11:59 Lamotrigine (Lamictal Tab) 100 mg QAM PO 02/14/18 09:00 03/16/18 08:59 02/14/18 09:35 100 MG Levothyroxine Sodium (Synthroid Tab) 137 mcg DAILYBB PO 02/14/18 06:00 03/16/18 05:59 02/14/18 05:38 137 MCG Loratadine (Claritin Tab) 10 mg DAILY PRN PO 02/13/18 12:00 03/15/18 11:59 Lorazepam (Ativan Tab) 0.5 mg BID PRN PO 02/13/18 12:00 03/15/18 11:59 Oxymetazoline HCl (Afrin 0.05% Nasal [place]) 2 sprays PRN PRN NA 02/13/18 12:00 03/15/18 11:59 Primidone (Mysoline Tab) 50 mg HS PO 02/13/18 21:00 03/15/18 20:59 02/13/18 21:13 50 MG Pantoprazole Sodium (Protonix Tab) 40 mg QAM PO 02/14/18 09:00 03/16/18 08:59 02/14/18 09:36 40 MG Cholecalciferol (Vitamin D Tab) 2,000 inter.unit Q2D@0900 PO 02/14/18 09:00 03/16/18 08:59 Hydralazine HCl (HydrALAZINE INJ) 10 mg Q8 PRN IV. 02/14/18 14:30 03/16/18 14:29 Review of Systems Ten systems reviewed and negative except as noted in the HPI. Physical Exam Date Time Temp Pulse Resp B/P (MAP) Pulse Ox O2 Delivery O2 Flow Rate FiO2 02/14/18 15:44 37.4 105 17 160/96 (117) 92 Room Air 02/14/18 13:00 96 179/111 (133) 02/14/18 11:40 36.9 85 16 195/114 (141) 96 Room Air 02/14/18 11:00 77 195/114 (141) 02/14/18 08:00 Room Air 02/14/18 07:21 37.3 76 16 162/92 (115) 91 Room Air 02/14/18 04:01 37.3 73 16 135/79 (97) 94 Room Air 02/13/18 23:15 Room Air 02/13/18 23:11 37.1 69 16 149/90 (109) 94 Room Air 02/13/18 21:24 162/91 (114) 02/13/18 19:43 36.6 63 16 176/108 (130) 98 Room Air 164/95 (118) General Appearance: WD/WN, no apparent distress Head: normocephalic, atraumatic Eyes: normal inspection, PERRL, sclerae normal ENT: normal ENT inspection, hearing grossly normal, pharynx normal (Moist mucous membranes) Neck: supple, thyroid normal, trachea midline Respiratory/Chest: chest non-tender, lungs clear, normal breath sounds, no respiratory distress, no accessory muscle use Cardiovascular: regular rate, rhythm, no edema, normal peripheral pulses Abdomen/GI: non tender, soft, no organomegaly Back: normal inspection Extremities/Musculoskelatal: normal inspection, normal capillary refill, no pedal edema, + pertinent finding (Surgical dressing on left knee--clean, dry, intact.) Neurologic/Psych: no motor/sensory deficits, alert, normal mood/affect, oriented x 3 Skin: normal color, warm/dry Laboratory Results Last 24 Hours Test 02/14/18 05:47 White Blood Count 6.63 K/uL Red Blood Count 4.15 M/uL Hemoglobin 12.4 g/dL Hematocrit 37.5 % Mean Corpuscular Volume 90.4 fL Mean Corpuscular Hemoglobin 29.9 pg Mean Corpuscular Hemoglobin Concent 33.1 g/dl RDW Standard Deviation 41.6 fL RDW Coefficient of Variation 12.6 % Platelet Count 205 K/uL Mean Platelet Volume 10.5 fL Sodium Level 136 mmol/L Potassium Level 4.2 mmol/L Chloride Level 107 mmol/L Carbon Dioxide Level 24 mmol/L Anion Gap 5.0 mmol/L Blood Urea Nitrogen 19 mg/dl Creatinine 1.76 mg/dl Est Creatinine Clear Calc Drug Dose 36.2 ml/min Estimated GFR () 34.1 Estimated GFR (Non- 29.4 BUN/Creatinine Ratio 10.5 Random Glucose 124 mg/dl Calcium Level 8.7 mg/dl Hepatitis C Antibody Screen NEG Assessment & Plan This is a 67yo F with a PMH of HTN, bipolar disorder, hypothyroidism, CKD III, OA and other medical problems listed below who is POD #1 s/p L TKA by Dr. Swanson. Left knee OA s/p L knee TKA: -Surgery by Dr. Swanson -Doing well post-operatively -Per ortho for pain control, wound care, anticoagulation and activities -Monitor H&H, continue incentive spirometry, PT/OT when appropriate HTN: -Was previously on lisinopril but it was discontinued 2/2 cough -BP monitoring in clinic but no additional medications have been indicated -Optimize pain control. Encouraged to ask for PRN medication as needed -Good response to IV hydralazine. Current reading 160/96 -Continue with PRN hydralazine -Monitor and add additional agents if needed -Close follow up in clinic for oral agents Bipolar disorder: -Cont Lamictal Anxiety: -Cont Atarax, Ativan PRN Hypothyroidism: -Cont levothyroxine CKD III: -Baseline Cr of 1.6, GFR of 33 -Currently slightly elevated at 1.76, 29 -Monitor closely, encouraged fluid intake -BMP in AM GERD: -Cont PPI Essential tremor: -Cont Primidone PCP: Ne[facility] Dispo: Farooq oshea Patient seen in collaboration with Dr. Luo. Please see addendum. Thank you for this consultation. We will follow the patient with you during their hospital stay. You can reach a member of the [facility] Hospitalist Team 08/05 via pager @ . ATTENDING ADDENDUM: Patient seen and examined care coordinated with Ellyn Swanson PA-C 67-year-old female underwent knee replacement surgery on left side Found to be hypertensive Patient is not on any antihypertensive drugs Used to take lisinopril was discontinued secondary to chronic dry cough Patient denies of any complaint of chest heaviness, no dizzy spell, no shortness of breath Blood pressure improved after ordering as needed IV hydralazine Ordered for scheduled p.o. hydralazine 25 mg twice Patient is counseled to have blood pressure monitoring at home Possibly will be discharged with above oral dose Will need close follow-up with family physician for blood pressure monitoring and adjustment of BP meds Cathi Luo MD
[2018-02-14] MEDS: PRIMIDONE 50 MG TAB PO SCH (21:19)
[2018-02-14] MEDS: SENNA 8.6 MG TAB PO SCH (21:19)
[2018-02-14] MEDS: ONDANSETRON INJ 2 MG/ML 2 ML VIAL IV PRN (21:20)
[2018-02-14] MEDS: HydrALAZINE HCL 20 MG/ML VIAL IV. PRN (23:27)
[2018-02-14] MEDS: HYDROmorphone INJ 0.5 MG/0.5 ML SYR IV PRN (23:38)
[2018-02-15] VITALS (8 sets, daily range): BP systolic 125–172; BP diastolic 73–93; PULSE 96–111; TEMP 37–37.1; O2SAT 94–98
[2018-02-15] MEDS: LEVOTHYROXINE 137 MCG TAB PO SCH (05:28)
[2018-02-15] MEDS: ACETAMINOPHEN 500 MG TAB PO SCH ×3 (05:28→21:31)
[2018-02-15 05:42] LABS: HEMATOCRIT 38.1 % (37-47); HEMOGLOBIN 12.9 g/dL (12.0-16.0); MEAN CELL VOLUME 89.6 fL (80-100); MEAN CORPUSCULAR HEMOGLOBIN 30.4 pg (25-34); MEAN CORPUSCULAR HGB CONC 33.9 g/dl (32-36); MEAN PLATELET VOLUME 10.5 fL (7.4-10.4); PLATELET COUNT 207 K/uL (130-400); RED CELL DISTRIBUTION WIDTH CV 12.7 % (11.5-14.5); RED CELL DISTRIBUTION WIDTH SD 41.2 fL (36.4-46.3); WHITE BLOOD COUNT 9.28 K/uL (4.8-10.8)
[2018-02-15 05:53] LABS: CREATININE 1.56 mg/dl (0.60-1.20); POTASSIUM 4.3 mmol/L (3.5-5.1)
--- NOTE | 2018-02-15 08:10 | PROGRESS NOTE ---
DATE: 02/15/2018 SUBJECTIVE: This is a 67-year-old white female, postop day 2 from a total knee replacement. She is doing relatively well. Pain has been managed. No chest pain or shortness of breath. Not feeling dizzy or lightheaded. OBJECTIVE: VITAL SIGNS: Temperature is 37.0. Vital signs stable. Mild hypertension. PHYSICAL EXAMINATION: GENERAL: Physical exam shows a pleasant middle-aged female, obese, sitting up in bed, looks pretty comfortable. EXTREMITIES: Examination of left leg reveals the leg to be well-aligned. Just a little bit of bloody drainage on the dressing. She can dorsiflex and plantarflex her foot appropriately. LABORATORIES: Electrolytes are stable. Creatinine is actually improved at 1.56. ASSESSMENT: This is a 67-year-old white female, postoperative day 2 from a left knee replacement, doing pretty well. Pain is controlled. She is neurologically intact. Her creatinine is improved. PLAN: 1. DVT prophylaxis including thigh-high TEDs, SCDs, and aspirin twice a day. 2. PT and OT. Weightbear as tolerated. Left total knee protocol. 3. Pain control, doing okay with current pain regimen. 4. Disposition: Plan to discharge to home with some home health later today.
[2018-02-15] MEDS: DOCUSATE SODIUM 100 MG CAP PO SCH ×2 (09:13→21:31)
[2018-02-15] MEDS: FERROUS GLUCONATE 324 MG TAB PO SCH ×3 (09:14→17:50)
[2018-02-15] MEDS: MULTIVITAMIN TAB PO SCH (09:14)
[2018-02-15] MEDS: PANTOprazole SOD 40 MG TAB PO SCH (09:14)
[2018-02-15] MEDS: FLUOXETINE HCL 20 MG CAP PO SCH (09:15)
[2018-02-15] MEDS: ASPIRIN 81 MG ECTAB PO SCH ×2 (09:15→21:31)
[2018-02-15] MEDS: TAPENTADOL ER 50 MG TABCR PO SCH ×2 (09:19→21:30)
[2018-02-15] MEDS: HydrALAZINE HCL 20 MG/ML VIAL IV. PRN ×2 (10:22→20:10)
[2018-02-15] MEDS: ONDANSETRON INJ 2 MG/ML 2 ML VIAL IV PRN (12:43)
[2018-02-15] MEDS: OXYCODONE HCL IR 5 MG TAB (IMMEDIATE RELEASE) PO PRN ×2 (13:30→18:59)
--- NOTE | 2018-02-15 17:47 | Progress Note ---
Internal Med Progress Note Date of Service: February 15, 2018. Provider Documentation: Hospitalist Medicine Consult follow up note SUBJECTIVE: Patient was to be discharged by orthopedic service today. Apparently she had elevated blood pressure after working with the physical therapy BP elevated at 176/99, medicated with IV hydralazine. Patient felt weak and continued to remain in the hospital. When seen by hospitalist medical doctor in the evening patient reports that she is feeling better but would prefer to stay in the hospital one more night to make sure that she is feeling okay to go back home tomorrow. OBJECTIVE: General Appearance: WD/WN, no apparent distress Head: normocephalic, atraumatic Eyes: normal inspection ENT: hearing grossly normal Neck: no JVD Respiratory/Chest: lungs clear, normal breath sounds, no respiratory distress, no accessory muscle use Cardiovascular: regular rate, rhythm Abdomen/GI: non tender, soft Extremities/Musculoskelatal: legs in stockings Neurologic/Psych: alert, normal mood/affect, oriented ASSESSMENT & PLAN: s/p L Total Knee Arthroplasty by Dr. Swanson. was planned for hospital discharge to home with Home Health Hypertension had elevated blood pressure after working with the physical therapy BP elevated at 176/99, medicated with IV hydralazine blood pressure better controlled throughout the day currently inpatient medication Hydralazine 25 mg BID, 10 mg IV q8h prn for blood pressure greater than 160 patient denies that high blood pressure has been a problem for her in the past the discharge medication list prepared by orthopedics dose not include a hypertension medication patient has allergy to lisinopril at this time there does not seem to be urgent need to place patient on additional blood pressure medications, would leave current inpatient regimen as the hydralazine as above continue to observe blood pressure by tomorrow hydralazine is not a 1st line agent for blood pressure control, if a blood pressure medication is needed, can consider starting or discharging patient with amlodipine 5 mg daily which is a calcium channel stuart CKD III: -Baseline Cr of 1.6, GFR of 33 -renal function returned to baseline Bipolar disorder: -Cont Lamictal Anxiety: -Cont Atarax, Ativan PRN Hypothyroidism: -Cont levothyroxine GERD: -Cont PPI Essential tremor: -Cont Primidone Disposition: discharge as per orthopedics, patient prefers to stay in hospital until tomorrow Vital Signs: Date Time Temp Pulse Resp B/P (MAP) Pulse Ox O2 Delivery O2 Flow Rate FiO2 02/15/18 15:25 37.0 99 18 125/73 (90) 94 Room Air 02/15/18 12:40 147/79 (101) 02/15/18 10:04 37.0 96 17 98 Room Air 02/15/18 07:38 Room Air 02/15/18 07:36 37.0 96 17 150/89 (109) 98 Room Air 02/15/18 01:09 134/84 (101) 02/14/18 23:35 Room Air 02/14/18 23:25 97 165/93 (117) 02/14/18 23:03 37.5 76 17 166/99 (121) 93 Room Air 02/14/18 22:17 37.5 Lab Results: Results Past 24 Hours Test 02/15/18 05:16 Range/Units White Blood Count 9.28 4.8-10.8 K/uL Red Blood Count 4.25 4.2-5.4 M/uL Hemoglobin 12.9 12.0-16.0 g/dL Hematocrit 38.1 37-47 % Mean Corpuscular Volume 89.6 80-100 fL Mean Corpuscular Hemoglobin 30.4 25-34 pg Mean Corpuscular Hemoglobin Concent 33.9 32-36 g/dl RDW Standard Deviation 41.2 36.4-46.3 fL RDW Coefficient of Variation 12.7 11.5-14.5 % Platelet Count 207 130-400 K/uL Mean Platelet Volume 10.5 7.4-10.4 fL Sodium Level 136 136-145 mmol/L Potassium Level 4.3 3.5-5.1 mmol/L Chloride Level 106 98-107 mmol/L Carbon Dioxide Level 26 21-32 mmol/L Anion Gap 4.0 3-11 mmol/L Blood Urea Nitrogen 15 7-18 mg/dl Creatinine 1.56 0.60-1.20 mg/dl Est Creatinine Clear Calc Drug Dose 40.8 ml/min Estimated GFR () 39.4 Estimated GFR (Non- 34.0 BUN/Creatinine Ratio 9.7 10-20 Random Glucose 131 70-99 mg/dl Calcium Level 10.0 8.5-10.1 mg/dl
[2018-02-15] MEDS: PRIMIDONE 50 MG TAB PO SCH (21:30)
[2018-02-15] MEDS: SENNA 8.6 MG TAB PO SCH (21:31)
[2018-02-16] MEDS: LEVOTHYROXINE 137 MCG TAB PO SCH (05:16)
[2018-02-16] MEDS: ACETAMINOPHEN 500 MG TAB PO SCH (05:17)
[2018-02-16] MEDS ORDERED: ONDA4TAB65 PO (06:53)
[2018-02-16 07:09] VITALS: BP 128/81; PULSE 90; TEMP 36.8; O2SAT 97
[2018-02-16] MEDS: FLUOXETINE HCL 20 MG CAP PO SCH (09:48)
[2018-02-16] MEDS: ASPIRIN 81 MG ECTAB PO SCH (09:48)
[2018-02-16] MEDS: DOCUSATE SODIUM 100 MG CAP PO SCH (09:48)
[2018-02-16] MEDS: CHOLECALCIFEROL 1000 INTER.UNIT TAB PO SCH (09:48)
[2018-02-16] MEDS: FERROUS GLUCONATE 324 MG TAB PO SCH (09:49)
[2018-02-16] MEDS: PANTOprazole SOD 40 MG TAB PO SCH (10:19)
[2018-02-16] MEDS: MULTIVITAMIN TAB PO SCH (10:19)
[2018-02-16] MEDS: TAPENTADOL ER 50 MG TABCR PO SCH (10:19)
--- NOTE | 2018-02-16 10:37 | PROGRESS NOTE ---
DATE: 02/16/2018 SUBJECTIVE: A 67-year-old female postop day 3 from a left knee replacement. She stayed overnight as she was pretty nauseated and just not feeling well yesterday. Blood pressure had been a little bit difficult to control intermittently. Denies any current chest pain. She says she is feeling much better this morning. Not feeling dizzy or lightheaded. OBJECTIVE: VITAL SIGNS: Temperature 36.8. Vital signs stable. GENERAL: Physical examination shows a pleasant, middle-aged female. She was in the bathroom cleaning up when I visit her today. She looks comfortable. EXTREMITIES: Examination of the left leg reveals the incision to be clean, dry and intact. She can dorsiflex and plantarflex her foot appropriately. She is neurologically intact. ASSESSMENT: A 67-year-old white female postop day 3 from a left knee replacement, doing pretty well. She has had some labile blood pressure, but seems to be under control now. She is feeling better. She has been little nauseated. We will send her home with some antiemetic medicines. PLAN: 1. DVT prophylaxis including thigh-high TEDs, SCDs, and aspirin twice a day. 2. PT/OT. She can fully weightbear the left knee. Left total knee protocol. 3. Pain control. Doing reasonably well with current pain regimen. 4. Nausea. We are going to send her home with some Zofran. 5. Disposition: Plan to discharge to home with some home health after therapy today.
[2018-02-16] MEDS: OXYCODONE HCL IR 5 MG TAB (IMMEDIATE RELEASE) PO PRN (12:05)
== END 2018-02-16 12:10 | disposition home health service (06) | DRG 470 ==
LOC: C.ACU 06:37 → C.3E 06:50 → ENRESERV 12:21
PROVIDERS: ADMIT Orthopaedic Surgery Sports Medicine; ATTEND Orthopaedic Surgery Sports Medicine
PROC: 0SRD0J9 Replacement of Left Knee Joint with Synthetic Substitute, Cemented, Open Approach (ICD-10-PCS; principal; 2018-02-13 09:45)
DX: M17.12 Unilateral primary osteoarthritis, left knee (principal); I12.9 Hypertensive chronic kidney disease with stage 1 through stage 4 chronic kidney disease, or unspecified chronic kidney disease; E03.9 Hypothyroidism, unspecified; E78.00 Pure hypercholesterolemia, unspecified; K21.9 Gastro-esophageal reflux disease without esophagitis; F31.9 Bipolar disorder, unspecified; N18.3 Chronic kidney disease, stage 3 (moderate); E66.9 Obesity, unspecified; G25.0 Essential tremor; Z68.35 Body mass index [BMI] 35.0-35.9, adult; Z79.899 Other long term (current) drug therapy